=== PATIENT | male | born 1990 | race Hispanic/Latino ===

== ENCOUNTER 2018-05-24 22:03 | Emergency (ER) | payer BC, OTHER ==
[2018-05-24 23:21] VITALS: BMI 22.7
[2018-05-24 23:22] VITALS: RESP 18; TEMP 97.9
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
[2018-05-25 01:56] VITALS: PULSE 65; O2SAT 97
[2018-05-25 01:57] VITALS: BP 119/78
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
== END 2018-05-25 01:52 | disposition home or self-care (01) ==
LOC: ED 22:03
DX: S00.83XA Contusion of other part of head, initial encounter (principal); W20.8XXA Other cause of strike by thrown, projected or falling object, initial encounter; Y92.9 Unspecified place or not applicable